=== PATIENT | male | born 1990 | race Caucasian/White ===

== ENCOUNTER → 2017-01-10 | Outpatient (REF) ==
[~2017-01-10] MED LIST: BENADRYL50 MG PO; NO HOME MEDICATIONS
== END ==
LOC: WSOH 13:37
DX: Z02.89 Encounter for other administrative examinations (principal)

== ENCOUNTER → 2017-01-10 | Outpatient (REF) | LOC: WSOH 13:35 | DX: Z00.00 Encounter for general adult medical examination without abnormal findings (principal) ==